=== PATIENT | male | born 1980 | race Caucasian/White ===

== ENCOUNTER 2017-11-15 04:10 | Emergency (ER) | payer MEDICAID ==
[~2017-11-15] VITALS: Ht 188 cm; Wt 105.0 kg
[2017-11-15 04:18] VITALS: BP 134/88
== END 2017-11-15 09:23 | disposition left against medical advice (07) ==
LOC: ER 04:10
DX: R11.10 Vomiting, unspecified (principal); Z53.21 Procedure and treatment not carried out due to patient leaving prior to being seen by health care provider

== ENCOUNTER 2017-11-20 02:32 | Emergency (ER) | payer OTHER ==
[~2017-11-20] VITALS: Ht 172.7 cm; Wt 81.0 kg
[2017-11-20 05:53] LABS: BASOPHILS % 0.4 % (0.0-2.0); CHLORIDE 103 mEq/L (98-107); EOSINOPHILS % 0.1 % (0.0-5.0); HEMATOCRIT. 43.4 % (42.0-52.0); HEMOGLOBIN. 14.8 g/dL (14.0-18.0); LYMPHOCYTES % 12.4 % (20.0-50.0); MEAN CORPUSCULAR HEMOGLOBIN 31.3 pg (28.0-32.0); MEAN CORPUSCULAR VOLUME 91.7 fL (80.0-94.0); MEAN PLATELET VOLUME 7.7 fl (7.4-10.4); MONOCYTES % 3.5 % (2.0-8.0); NEUTROPHILS % 83.6 % (40.0-76.0); PLATELET 206 x1000/uL (130-400); RED BLOOD CELL COUNT 4.73 mill/uL (4.7-6.1); RED CELL DISTRIBUTION WIDTH 14.4 % (11.6-14.6)
[2017-11-20 05:57] LABS: ETHANOL BLOOD < 10 mg/dL
[2017-11-20] MEDS ORDERED: POTASSIUM CHLORIDE 20MEQ TABLET SR PO ONE (06:45)
[2017-11-20] MEDS ORDERED: ONDANSETRON HCL 4MG/2ML VIAL IM ONE (07:45)
[2017-11-20 08:00] VITALS: BP 151/94
== END 2017-11-20 10:27 | disposition home or self-care (01) ==
LOC: ER 02:34
DX: F10.229 Alcohol dependence with intoxication, unspecified (principal); Y90.0 Blood alcohol level of less than 20 mg/100 ml; E87.6 Hypokalemia; R03.0 Elevated blood-pressure reading, without diagnosis of hypertension; R45.851 Suicidal ideations
CPT/HCPCS: 36415; 80053; 85025; 96372; 99284; G0482; J2405; Z7610

== ENCOUNTER 2017-11-20 12:26 | Emergency (ER) | payer OTHER ==
[~2017-11-20] VITALS: Ht 185.4 cm; Wt 95.0 kg
[2017-11-21 01:09] LABS: BASOPHILS % 0.3 % (0.0-2.0); EOSINOPHILS % 0.1 % (0.0-5.0); HEMATOCRIT. 44.8 % (42.0-52.0); HEMOGLOBIN. 15.3 g/dL (14.0-18.0); MEAN CORPUSCULAR HEMOGLOBIN 31.7 pg (28.0-32.0); MEAN CORPUSCULAR VOLUME 92.6 fL (80.0-94.0); MEAN PLATELET VOLUME 7.4 fl (7.4-10.4); MONOCYTES % 4.9 % (2.0-8.0); NEUTROPHILS % 71.7 % (40.0-76.0); PLATELET 228 x1000/uL (130-400); RED BLOOD CELL COUNT 4.84 mill/uL (4.7-6.1); RED CELL DISTRIBUTION WIDTH 14.9 % (11.6-14.6)
[2017-11-21 01:21] LABS: CHLORIDE 100 mEq/L (98-107)
[2017-11-21 01:31] LABS: ETHANOL BLOOD 142 mg/dL
[2017-11-21 03:48] LABS: CLARITY URINE CLEAR (CLEAR); COLOR URINE YELLOW (YELLOW); KETONES URINE 2+ (NEGATIVE); LEUKOCYTE ESTERASE URINE NEGATIVE (NEGATIVE); NITRITE URINE NEGATIVE (NEGATIVE); OCCULT BLOOD URINE NEGATIVE (NEGATIVE); PROTEIN URINE NEGATIVE (NEGATIVE); SPECIFIC GRAVITY URINE 1.014 (1.005-1.030); UROBILINOGEN URINE 0.2 E.U./dL (0.2-1.0)
[2017-11-21 04:07] LABS: *AMPHETAMINES SCREEN URINE NEGATIVE (NEGATIVE); *BARBITURATES SCREEN URINE NEGATIVE (NEGATIVE); *COCAINE SCREEN URINE NEGATIVE (NEGATIVE); METHADONE URINE SCREEN NEGATIVE (NEGATIVE); OPIATES URINE SCREEN NEGATIVE (NEGATIVE); PHENCYCLIDINE URINE SCREEN NEGATIVE (NEGATIVE)
[2017-11-21 05:10] LABS: *BENZODIAZEPINES SCREEN URINE PRESUMTIVE POSITIVE (NEGATIVE); CANNABINOID URINE SCREEN NEGATIVE (NEGATIVE)
[2017-11-21] MEDS ORDERED: SODIUM CHLORIDE 0.9% 1,000 ML IV ONE (05:45)
[2017-11-21 07:13] LABS: CHLORIDE 101 mEq/L (98-107)
[2017-11-21 07:18] LABS: ETHANOL BLOOD 67 mg/dL
[2017-11-21] MEDS ORDERED: ONDANSETRON HCL 4MG/2ML VIAL IV ONE (11:45)
[2017-11-21 14:21] LABS: CHLORIDE 102 mEq/L (98-107)
[2017-11-21 14:27] LABS: ETHANOL BLOOD < 10 mg/dL
[2017-11-21] MEDS ORDERED: LORAZEPAM 1MG TABLET PO ONE ×2 (23:30)
[2017-11-22 21:10] VITALS: BP 151/85
== END 2017-11-22 21:30 ==
LOC: ER 12:26
DX: T51.2X1A Toxic effect of 2-Propanol, accidental (unintentional), initial encounter (principal); F15.10 Other stimulant abuse, uncomplicated; Y92.89 Other specified places as the place of occurrence of the external cause
CPT/HCPCS: 36415; 80048; 80053; 80305; 81003; 82010; 83930; 85025; 93005; 96361; 96374; 99285; G0482; J2405; J7030

== ENCOUNTER 2019-04-03 15:08 | Emergency (ER) | payer MEDICAID, OTHER ==
[~2019-04-03] VITALS: Ht 175.3 cm; Wt 80.0 kg
[2019-04-03] MEDS ORDERED: DIPHENHYDRAMINE 50MG/ML VIAL IM ONE (15:45)
[2019-04-03] MEDS ORDERED: LORAZEPAM 2MG/ML CPJ IM ONE (15:45)
[2019-04-03] MEDS ORDERED: HALOPERIDOL LACTATE 5MG/ML VIAL IM ONE (15:45)
[2019-04-03 16:14] LABS: BASOPHILS % 0.7 % (0.0-2.0); EOSINOPHILS % 2.9 % (0.0-5.0); HEMATOCRIT. 44.2 % (42.0-52.0); HEMOGLOBIN. 15.1 g/dL (14.0-18.0); LYMPHOCYTES % 47.4 % (20.0-50.0); MEAN CORPUSCULAR HEMOGLOBIN 32.7 pg (28.0-32.0); MEAN CORPUSCULAR VOLUME 95.6 fL (80.0-94.0); MEAN PLATELET VOLUME 7.5 fl (7.4-10.4); MONOCYTES % 6.5 % (2.0-8.0); NEUTROPHILS % 42.5 % (40.0-76.0); PLATELET 212 x1000/uL (130-400); RED BLOOD CELL COUNT 4.63 mill/uL (4.7-6.1); RED CELL DISTRIBUTION WIDTH 13.5 % (11.6-14.6)
[2019-04-03 16:18] LABS: CHLORIDE 108 mEq/L (98-107)
[2019-04-03 16:37] LABS: ETHANOL BLOOD 414 mg/dL
[2019-04-03 20:38] LABS: CLARITY URINE CLEAR (CLEAR); COLOR URINE YELLOW (YELLOW); KETONES URINE NEGATIVE (NEGATIVE); LEUKOCYTE ESTERASE URINE NEGATIVE (NEGATIVE); NITRITE URINE NEGATIVE (NEGATIVE); OCCULT BLOOD URINE NEGATIVE (NEGATIVE); PH URINE 6.5 (4.5-8.0); PROTEIN URINE NEGATIVE (NEGATIVE); SPECIFIC GRAVITY URINE 1.013 (1.005-1.030)
[2019-04-03 21:37] LABS: *AMPHETAMINES SCREEN URINE NEGATIVE (NEGATIVE); *BARBITURATES SCREEN URINE NEGATIVE (NEGATIVE); *BENZODIAZEPINES SCREEN URINE PRESUMTIVE POSITIVE (NEGATIVE); *COCAINE SCREEN URINE NEGATIVE (NEGATIVE); METHADONE URINE SCREEN NEGATIVE (NEGATIVE)
[2019-04-03 21:38] LABS: CANNABINOID URINE SCREEN PRESUMTIVE POSITIVE (NEGATIVE); OPIATES URINE SCREEN NEGATIVE (NEGATIVE); PHENCYCLIDINE URINE SCREEN NEGATIVE (NEGATIVE)
[2019-04-04] MEDS ORDERED: LORAZEPAM 1MG TABLET PO ONE (02:45)
[2019-04-04] MEDS ORDERED: ONDANSETRON 4MG ODT PO ONE (09:15)
[2019-04-04] MEDS ORDERED: LORAZEPAM 2MG/ML CPJ IM ONE ×2 (09:15→17:45)
[2019-04-05 07:30] VITALS: BP 136/72
== END 2019-04-05 11:26 | disposition home or self-care (01) ==
LOC: ER 15:08
DX: R45.851 Suicidal ideations (principal); F32.9 Major depressive disorder, single episode, unspecified; F10.129 Alcohol abuse with intoxication, unspecified; Y90.8 Blood alcohol level of 240 mg/100 ml or more; F19.10 Other psychoactive substance abuse, uncomplicated; E87.6 Hypokalemia; R56.9 Unspecified convulsions
CPT/HCPCS: 36415; 80053; 80305; 80320; 81003; 85025; 96372; 99285; J1200; J1630; J2060; Q0162; Z7610; G0480

== ENCOUNTER 2019-06-27 04:33 | Emergency (ER) | payer MEDICAID ==
[~2019-06-27] VITALS: Ht 180.3 cm; Wt 113.0 kg
[2019-06-27 07:23] VITALS: BP 150/90
== END 2019-06-27 09:04 | disposition left against medical advice (07) ==
LOC: ER 05:02 → EDUNIT# 05:02 → ER 09:04
DX: Z53.21 Procedure and treatment not carried out due to patient leaving prior to being seen by health care provider (principal)

== ENCOUNTER 2019-06-28 20:24 | Emergency (ER) | payer MEDICAID ==
[~2019-06-28] VITALS: Ht 188 cm; Wt 107.0 kg
[2019-06-28] MEDS ORDERED: SODIUM CHLORIDE 0.9% 1,000 ML IV ONE (23:36)
[2019-06-28] MEDS ORDERED: ONDANSETRON HCL 4MG/2ML INJ IV STA (23:36)
[2019-06-28] MEDS ORDERED: CHLORDIAZEPOXIDE 25MG CAPSULE PO ONE (23:45)
[2019-06-29 00:30] LABS: BASOPHILS % 0.8 % (0.0-2.0); EOSINOPHILS % 0.1 % (0.0-5.0); HEMATOCRIT. 54.2 % (42.0-52.0); HEMOGLOBIN. 18.1 g/dL (14.0-18.0); LYMPHOCYTES % 19.8 % (20.0-50.0); MEAN CORPUSCULAR HEMOGLOBIN 31.4 pg (28.0-32.0); MEAN PLATELET VOLUME 7.3 fl (7.4-10.4); MONOCYTES % 4.3 % (2.0-8.0); PLATELET 285 x1000/uL (130-400); RED BLOOD CELL COUNT 5.76 mill/uL (4.7-6.1); RED CELL DISTRIBUTION WIDTH 14.2 % (11.6-14.6)
[2019-06-29 00:45] LABS: CHLORIDE 100 mEq/L (98-107)
[2019-06-29 00:48] LABS: ETHANOL BLOOD 337 mg/dL
[2019-06-29] MEDS ORDERED: KETOROLAC 30MG/ML VIAL IV NR (04:45)
[2019-06-29] MEDS ORDERED: FAMOTIDINE 20MG TABLET PO ONE (05:15)
[2019-06-29 06:59] VITALS: BP 120/72
== END 2019-06-29 07:01 | disposition home or self-care (01) ==
LOC: ER 20:24
DX: F10.129 Alcohol abuse with intoxication, unspecified (principal); Y90.8 Blood alcohol level of 240 mg/100 ml or more; Z88.8 Allergy status to other drugs, medicaments and biological substances
CPT/HCPCS: 36415; 71045; 80053; 80320; 83690; 84484; 85025; 93005; 96361; 96374; 96375; 99284; C1893; J1885; J2405; J7030; Z7610; G0480

== ENCOUNTER 2019-11-30 22:55 | Emergency (ER) | payer MEDICAID ==
[~2019-11-30] VITALS: Ht 177.8 cm; Wt 95.0 kg
[2019-11-30] MEDS ORDERED: SODIUM CHLORIDE 0.9% 1,000 ML IV ONE (23:31)
[2019-11-30] MEDS ORDERED: ONDANSETRON HCL 4MG/2ML INJ IV STA (23:31)
[2019-11-30] MEDS ORDERED: MORPHINE SULFATE 4 MG/ML CPJ (NOT FOR IM USE) IV STA (23:31)
[2019-11-30] MEDS ORDERED: FAMOTIDINE 20MG/2ML VIAL IV ONE (23:45)
[2019-11-30] MEDS ORDERED: VISCOUS LIDOCAINE 2% 15 ML UDC PO ONE (23:45)
[2019-11-30] MEDS ORDERED: MAGNESIUM/ALUMINUM HYDROXIDE/SIMETHICONE 30ML UDC PO ONE (23:45)
[2019-11-30] MEDS ORDERED: LORAZEPAM 2MG/ML CPJ IV ONE (23:45)
[2019-11-30 23:54] LABS: BASOPHILS % 0.3 % (0.0-2.0); EOSINOPHILS % 2.1 % (0.0-5.0); HEMATOCRIT. 37.2 % (42.0-52.0); HEMOGLOBIN. 12.8 g/dL (14.0-18.0); LYMPHOCYTES % 37.1 % (20.0-50.0); MEAN CORPUSCULAR HEMOGLOBIN 33.6 pg (28.0-32.0); MEAN CORPUSCULAR VOLUME 97.3 fL (80.0-94.0); MONOCYTES % 8.4 % (2.0-8.0); NEUTROPHILS % 52.1 % (40.0-76.0); PLATELET 325 x1000/uL (130-400); RED BLOOD CELL COUNT 3.82 mill/uL (4.7-6.1); RED CELL DISTRIBUTION WIDTH 15.1 % (11.6-14.6)
[2019-11-30 23:56] LABS: CHLORIDE 107 mEq/L (98-107)
[2019-12-01] LABS: ETHANOL BLOOD 140 mg/dL
[2019-12-01 01:52] LABS: CLARITY URINE CLEAR (CLEAR); COLOR URINE YELLOW (YELLOW); KETONES URINE NEGATIVE (NEGATIVE); LEUKOCYTE ESTERASE URINE NEGATIVE (NEGATIVE); NITRITE URINE NEGATIVE (NEGATIVE); OCCULT BLOOD URINE NEGATIVE (NEGATIVE); PROTEIN URINE NEGATIVE (NEGATIVE); SPECIFIC GRAVITY URINE 1.018 (1.005-1.030); UROBILINOGEN URINE 0.2 E.U./dL (0.2-1.0)
[2019-12-01] MEDS ORDERED: FOLIC ACID 1 MG, THIAMINE HCL 100 MG, MVI, ADULT NO.1 10 ML in DEXTROSE 5% WATER 1,000 ML IV ONE ×4 (02:00)
[2019-12-01] MEDS ORDERED: LORAZEPAM 2MG/ML CPJ IV ONE (02:00)
[2019-12-01 02:02] LABS: *AMPHETAMINES SCREEN URINE NEGATIVE (NEGATIVE); *BARBITURATES SCREEN URINE NEGATIVE (NEGATIVE); *BENZODIAZEPINES SCREEN URINE PRESUMTIVE POSITIVE (NEGATIVE); *COCAINE SCREEN URINE NEGATIVE (NEGATIVE); METHADONE URINE SCREEN NEGATIVE (NEGATIVE); OPIATES URINE SCREEN PRESUMTIVE POSITIVE (NEGATIVE)
[2019-12-01 02:03] LABS: CANNABINOID URINE SCREEN NEGATIVE (NEGATIVE); PHENCYCLIDINE URINE SCREEN NEGATIVE (NEGATIVE)
[2019-12-01 04:22] VITALS: BP 120/68
[2019-12-01] MEDS ORDERED: ONDANSETRON HCL 4MG/2ML INJ IV ONE (05:15)
== END 2019-12-01 05:55 | disposition home or self-care (01) ==
LOC: ER 22:55
DX: S93.491A Sprain of other ligament of right ankle, initial encounter (principal); K29.20 Alcoholic gastritis without bleeding; F10.10 Alcohol abuse, uncomplicated; R00.0 Tachycardia, unspecified; Y90.6 Blood alcohol level of 120-199 mg/100 ml; W18.39XA Other fall on same level, initial encounter; Y93.89 Activity, other specified; Y92.89 Other specified places as the place of occurrence of the external cause; Y99.8 Other external cause status; Z90.49 Acquired absence of other specified parts of digestive tract; Z88.8 Allergy status to other drugs, medicaments and biological substances
CPT/HCPCS: 36415; 73610; 80053; 80305; 80320; 81003; 83690; 84484; 85025; 93005; 96365; 96375; 96376; 99285; J2060; J2270; J2405; J3411; J3490; J7030; J7070; G0480

== ENCOUNTER 2019-12-15 01:21 | Emergency (ER) | payer MEDICAID ==
[~2019-12-15] VITALS: Ht 182.9 cm; Wt 95.0 kg
[2019-12-15] MEDS ORDERED: CHLORDIAZEPOXIDE 25MG CAPSULE PO ONE (02:00)
[2019-12-15] MEDS ORDERED: HYDROCODONE/ACETAMINOPHEN 5/325MG TABLET PO ONE (03:00)
[2019-12-15 04:30] LABS: EOSINOPHILS % 1.2 % (0.0-5.0); HEMATOCRIT. 41.5 % (42.0-52.0); HEMOGLOBIN. 14.3 g/dL (14.0-18.0); LYMPHOCYTES % 41.6 % (20.0-50.0); MEAN CORPUSCULAR HEMOGLOBIN 33.3 pg (28.0-32.0); MEAN CORPUSCULAR VOLUME 96.8 fL (80.0-94.0); MEAN PLATELET VOLUME 6.8 fl (7.4-10.4); MONOCYTES % 8.2 % (2.0-8.0); PLATELET 176 x1000/uL (130-400); RED BLOOD CELL COUNT 4.29 mill/uL (4.7-6.1); RED CELL DISTRIBUTION WIDTH 15.3 % (11.6-14.6)
[2019-12-15] MEDS ORDERED: IBUPROFEN 400MG TABLET PO ONE (04:45)
[2019-12-15 04:46] LABS: CHLORIDE 104 mEq/L (98-107)
[2019-12-15 05:15] LABS: *AMPHETAMINES SCREEN URINE NEGATIVE (NEGATIVE); *BARBITURATES SCREEN URINE PRESUMTIVE POSITIVE (NEGATIVE)
[2019-12-15 05:16] LABS: *BENZODIAZEPINES SCREEN URINE PRESUMTIVE POSITIVE (NEGATIVE); *COCAINE SCREEN URINE NEGATIVE (NEGATIVE); CANNABINOID URINE SCREEN NEGATIVE (NEGATIVE); METHADONE URINE SCREEN NEGATIVE (NEGATIVE); OPIATES URINE SCREEN NEGATIVE (NEGATIVE); PHENCYCLIDINE URINE SCREEN NEGATIVE (NEGATIVE)
[2019-12-15 05:39] LABS: ETHANOL BLOOD 314 mg/dL
[2019-12-15] MEDS ORDERED: LORAZEPAM 2MG/ML CPJ IM ONE (07:15)
[2019-12-15] MEDS ORDERED: HALOPERIDOL LACTATE 5MG/ML VIAL IM ONE (07:30)
[2019-12-15 09:48] VITALS: BP 142/85
== END 2019-12-15 10:18 | disposition home or self-care (01) ==
LOC: ER 01:49
DX: F10.239 Alcohol dependence with withdrawal, unspecified (principal); R45.851 Suicidal ideations; R51 Headache; R45.1 Restlessness and agitation; Z87.19 Personal history of other diseases of the digestive system; Z88.8 Allergy status to other drugs, medicaments and biological substances; Z90.49 Acquired absence of other specified parts of digestive tract
CPT/HCPCS: 36415; 80053; 80305; 80320; 85025; 96372; 99285; J1630; J2060; G0480

== ENCOUNTER 2019-12-16 02:49 | Emergency (ER) | payer MEDICAID ==
[~2019-12-16] VITALS: Ht 177.8 cm; Wt 90.0 kg
[2019-12-16 03:41] LABS: BASOPHILS % 1.1 % (0.0-2.0); EOSINOPHILS % 2.4 % (0.0-5.0); HEMATOCRIT. 37.1 % (42.0-52.0); HEMOGLOBIN. 13.1 g/dL (14.0-18.0); LYMPHOCYTES % 41.6 % (20.0-50.0); MEAN CORPUSCULAR HEMOGLOBIN 33.6 pg (28.0-32.0); MEAN CORPUSCULAR VOLUME 95.4 fL (80.0-94.0); MEAN PLATELET VOLUME 6.9 fl (7.4-10.4); MONOCYTES % 10.3 % (2.0-8.0); NEUTROPHILS % 44.6 % (40.0-76.0); PLATELET 151 x1000/uL (130-400); RED BLOOD CELL COUNT 3.89 mill/uL (4.7-6.1); RED CELL DISTRIBUTION WIDTH 15.5 % (11.6-14.6)
[2019-12-16 04:01] LABS: CHLORIDE 102 mEq/L (98-107)
[2019-12-16 04:06] LABS: ETHANOL BLOOD 167 mg/dL
[2019-12-16 04:36] LABS: CLARITY URINE CLEAR (CLEAR); COLOR URINE YELLOW (YELLOW); KETONES URINE NEGATIVE (NEGATIVE); LEUKOCYTE ESTERASE URINE NEGATIVE (NEGATIVE); NITRITE URINE NEGATIVE (NEGATIVE); OCCULT BLOOD URINE NEGATIVE (NEGATIVE); PROTEIN URINE NEGATIVE (NEGATIVE); SPECIFIC GRAVITY URINE 1.006 (1.005-1.030)
[2019-12-16 04:40] LABS: *AMPHETAMINES SCREEN URINE NEGATIVE (NEGATIVE); *BARBITURATES SCREEN URINE PRESUMTIVE POSITIVE (NEGATIVE); *BENZODIAZEPINES SCREEN URINE PRESUMTIVE POSITIVE (NEGATIVE); *COCAINE SCREEN URINE NEGATIVE (NEGATIVE)
[2019-12-16 04:41] LABS: CANNABINOID URINE SCREEN NEGATIVE (NEGATIVE); METHADONE URINE SCREEN NEGATIVE (NEGATIVE); OPIATES URINE SCREEN NEGATIVE (NEGATIVE); PHENCYCLIDINE URINE SCREEN NEGATIVE (NEGATIVE)
[2019-12-16] MEDS ORDERED: POTASSIUM CHLORIDE 20MEQ TABLET SR PO ONE (06:30)
[2019-12-16] MEDS ORDERED: ONDANSETRON 4MG ODT PO ONE (06:45)
[2019-12-16] MEDS ORDERED: CHLORDIAZEPOXIDE 25MG CAPSULE PO ONE (09:30)
[2019-12-16] MEDS ORDERED: LORAZEPAM 1MG TABLET PO ONE (19:00)
[2019-12-17] MEDS ORDERED: LORAZEPAM 1MG TABLET PO NR (05:00)
[2019-12-17] MEDS ORDERED: ACETAMINOPHEN 500MG TABLET PO NR (05:00)
[2019-12-17] MEDS ORDERED: CHLORDIAZEPOXIDE 25MG CAPSULE PO NR (05:00)
[2019-12-17 06:36] VITALS: BP 143/91
[2019-12-17] MEDS ORDERED: MULTIVITAMINS,THER W-MINERALS TABLET PO SCH (09:00)
[2019-12-17] MEDS ORDERED: THIAMINE HCL 100MG TABLET PO SCH (09:00)
== END 2019-12-17 08:30 | disposition home or self-care (01) ==
LOC: ER 02:49
DX: F41.9 Anxiety disorder, unspecified (principal); F41.0 Panic disorder [episodic paroxysmal anxiety]; F20.9 Schizophrenia, unspecified; F10.20 Alcohol dependence, uncomplicated; Y90.0 Blood alcohol level of less than 20 mg/100 ml; Z88.8 Allergy status to other drugs, medicaments and biological substances
CPT/HCPCS: 36415; 80053; 80305; 80307; 80320; 80329; 81003; 82962; 85025; 93005; 99285; Q0162; G0480

== ENCOUNTER 2019-12-17 08:24 | Emergency (ER) | payer MEDICAID ==
[~2019-12-17] VITALS: Ht 188 cm; Wt 104.5 kg
[2019-12-17 11:01] VITALS: BP 141/94
== END 2019-12-17 11:12 | disposition home or self-care (01) ==
LOC: ER 08:36
DX: R45.851 Suicidal ideations (principal)
CPT/HCPCS: 99281

== ENCOUNTER 2020-03-21 19:37 | Inpatient (IN) | payer MEDICAID ==
[~2020-03-21] VITALS: Ht 188 cm; Wt 108.9 kg
[2020-03-21] MEDS ORDERED: SODIUM CHLORIDE 0.9% 1,000 ML IV ONE (20:39)
[2020-03-21] MEDS ORDERED: LORAZEPAM 2MG/ML CPJ IV ONE (20:45)
[2020-03-21] MEDS ORDERED: CEFTRIAXONE 1 G PREMIX 50 ML IV ONE (20:45)
[2020-03-21] MEDS ORDERED: FOLIC ACID 1 MG, THIAMINE HCL 100 MG, MVI, ADULT NO.1 10 ML in DEXTROSE 5% WATER 1,000 ML IV ONE ×4 (20:45)
[2020-03-21 22:55] LABS: BASOPHILS % 1.4 % (0.0-2.0); EOSINOPHILS % 0.7 % (0.0-5.0); HEMATOCRIT. 43.4 % (42.0-52.0); HEMOGLOBIN. 15.1 g/dL (14.0-18.0); LYMPHOCYTES % 31.8 % (20.0-50.0); MEAN CORPUSCULAR HEMOGLOBIN 33.2 pg (28.0-32.0); MEAN CORPUSCULAR VOLUME 95.6 fL (80.0-94.0); MEAN PLATELET VOLUME 6.6 fl (7.4-10.4); MONOCYTES % 5.1 % (2.0-8.0); PLATELET 211 x1000/uL (130-400); RED BLOOD CELL COUNT 4.53 mill/uL (4.7-6.1)
[2020-03-21 23:02] LABS: CHLORIDE 101 mEq/L (98-107)
[2020-03-21 23:16] LABS: ETHANOL BLOOD 338 mg/dL
[2020-03-21] MEDS ORDERED: DIPHENHYDRAMINE 50MG/ML VIAL IV PRN (23:45)
[2020-03-21] MEDS ORDERED: NA PHOS,M-B/NA PHOS,DI-BA ENEMA 118ML PR PRN (23:45)
[2020-03-21] MEDS ORDERED: ACETAMINOPHEN 325MG TABLET PO PRN (23:45)
[2020-03-21] MEDS ORDERED: MVI, ADULT NO.1 10 ML, FOLIC ACID 1 MG, THIAMINE HCL 100 MG in SODIUM CHLORIDE 0.9% 1,0... IV SCH ×4 (23:45)
[2020-03-21] MEDS ORDERED: ACETAMINOPHEN 650MG SUPP PR PRN (23:45)
[2020-03-21] MEDS ORDERED: ACETAMINOPHEN 650MG/20.3ML UDC GT PRN ×2 (23:45)
[2020-03-22] MEDS: LORAZEPAM 2MG/ML CPJ IV PRN ×3 (05:08→18:23)
[2020-03-22] MEDS: ACETAMINOPHEN 325MG TABLET PO PRN (05:09)
[2020-03-22 05:29] LABS: BASOPHILS % 1.2 % (0.0-2.0); EOSINOPHILS % 1.4 % (0.0-5.0); HEMATOCRIT. 38.7 % (42.0-52.0); HEMOGLOBIN. 13.1 g/dL (14.0-18.0); LYMPHOCYTES % 32.8 % (20.0-50.0); MEAN CORPUSCULAR HEMOGLOBIN 32.3 pg (28.0-32.0); MEAN CORPUSCULAR VOLUME 95.4 fL (80.0-94.0); MEAN PLATELET VOLUME 6.6 fl (7.4-10.4); MONOCYTES % 7.1 % (2.0-8.0); NEUTROPHILS % 57.5 % (40.0-76.0); PLATELET 170 x1000/uL (130-400); RED BLOOD CELL COUNT 4.06 mill/uL (4.7-6.1); RED CELL DISTRIBUTION WIDTH 16.9 % (11.6-14.6)
[2020-03-22 05:35] LABS: CHLORIDE 102 mEq/L (98-107)
[2020-03-22 05:49] LABS: LDL CHOLESTEROL 149 mg/dL (5-100)
[2020-03-22 05:52] LABS: HDL CHOLESTEROL 65 mg/dL (40-59)
[2020-03-22] MEDS ORDERED: CHLORDIAZEPOXIDE 25MG CAPSULE PO SCH (06:00)
[2020-03-22] MEDS: FAMOTIDINE 20MG/2ML VIAL IV SCH (09:03)
[2020-03-22] MEDS: THIAMINE HCL 100MG TABLET PO SCH (09:03)
[2020-03-22] MEDS: LEVETIRACETAM 500MG TABLET PO SCH ×2 (09:03→21:26)
[2020-03-22] MEDS ORDERED: POTASSIUM CHLORIDE 20MEQ TABLET SR PO NR (10:15)
[2020-03-22] MEDS: DEXT 5%/0.45% NACL 1000ML 1,000 ML IV SCH (10:49)
[2020-03-22] MEDS: CHLORDIAZEPOXIDE 25MG CAPSULE PO SCH ×2 (15:15→22:27)
[2020-03-22] MEDS: AMLODIPINE 10MG TABLET PO SCH (21:27)
[2020-03-23] MEDS: LORAZEPAM 2MG/ML CPJ IV PRN ×4 (01:27→19:54)
[2020-03-23] MEDS: CHLORDIAZEPOXIDE 25MG CAPSULE PO SCH ×3 (07:38→17:30)
[2020-03-23 08:18] LABS: BASOPHILS % 0.8 % (0.0-2.0); EOSINOPHILS % 4.1 % (0.0-5.0); HEMATOCRIT. 39.2 % (42.0-52.0); HEMOGLOBIN. 13.8 g/dL (14.0-18.0); LYMPHOCYTES % 14.9 % (20.0-50.0); MEAN CORPUSCULAR HEMOGLOBIN 33.7 pg (28.0-32.0); MEAN CORPUSCULAR VOLUME 95.7 fL (80.0-94.0); MEAN PLATELET VOLUME 7.2 fl (7.4-10.4); MONOCYTES % 5.5 % (2.0-8.0); NEUTROPHILS % 74.7 % (40.0-76.0); PLATELET 133 x1000/uL (130-400); RED BLOOD CELL COUNT 4.09 mill/uL (4.7-6.1); RED CELL DISTRIBUTION WIDTH 16.6 % (11.6-14.6)
[2020-03-23 08:23] LABS: CHLORIDE 103 mEq/L (98-107)
[2020-03-23] MEDS: LEVETIRACETAM 500MG TABLET PO SCH ×2 (09:00→22:16)
[2020-03-23] MEDS: FAMOTIDINE 20MG/2ML VIAL IV SCH (09:00)
[2020-03-23] MEDS: AMLODIPINE 10MG TABLET PO SCH (09:00)
[2020-03-23] MEDS: THIAMINE HCL 100MG TABLET PO SCH (09:00)
[2020-03-23] MEDS: BENAZEPRIL 5MG TABLET PO SCH (14:15)
[2020-03-23] MEDS ORDERED: BUPR-43 (18:56)
[2020-03-23] MEDS ORDERED: PANT40TA4 (18:56)
[2020-03-23] MEDS ORDERED: BUPR-315 (18:56)
[2020-03-23] MEDS ORDERED: FOLI-43 (18:56)
[2020-03-23] MEDS ORDERED: DES150 (18:56)
[2020-03-23 21:50] VITALS: BP 149/92
[2020-03-23] MEDS ORDERED: LURA60TA PO (22:03)
[2020-03-23] MEDS ORDERED: LORA2TAB95 PO (22:03)
[2020-03-24] VITALS: BP 149/92
[2020-03-24] MEDS: LORAZEPAM 2MG/ML CPJ IV PRN (00:16)
[2020-03-24] MEDS: ACETAMINOPHEN 325MG TABLET PO PRN (02:05)
[2020-03-24] MEDS: CHLORDIAZEPOXIDE 25MG CAPSULE PO SCH ×3 (05:20→21:37)
[2020-03-24] MEDS: LORAZEPAM 1MG TABLET PO PRN ×3 (06:49→20:03)
[2020-03-24 08:00] VITALS: BP 126/82
[2020-03-24] MEDS: THIAMINE HCL 100MG TABLET PO SCH (09:28)
[2020-03-24] MEDS: FAMOTIDINE 20MG/2ML VIAL IV SCH (09:28)
[2020-03-24] MEDS: AMLODIPINE 10MG TABLET PO SCH (09:28)
[2020-03-24] MEDS: BENAZEPRIL 5MG TABLET PO SCH (09:28)
[2020-03-24] MEDS: DEXT 5%/0.45% NACL 1000ML 1,000 ML IV SCH (09:30)
[2020-03-24] MEDS: LEVETIRACETAM 500MG TABLET PO SCH ×2 (09:43→20:02)
[2020-03-24 12:00] VITALS: BP 125/71
[2020-03-24] MEDS ORDERED: THIA50TA11 MT (12:33)
[2020-03-24 16:00] VITALS: BP 107/70
[2020-03-24] MEDS ORDERED: BUPROPION HCL 150MG TABLET XL 24HR PO SCH ×2 (21:00)
[2020-03-24] MEDS ORDERED: TRAZODONE HCL 50MG TABLET PO SCH (21:00)
[2020-03-25 04:00] VITALS: BP 110/54
[2020-03-25] MEDS: CHLORDIAZEPOXIDE 25MG CAPSULE PO SCH ×2 (05:30→14:25)
[2020-03-25 08:00] VITALS: BP 103/65
[2020-03-25] MEDS: LEVETIRACETAM 500MG TABLET PO SCH (09:00)
[2020-03-25] MEDS: AMLODIPINE 10MG TABLET PO SCH (09:00)
[2020-03-25] MEDS: FAMOTIDINE 20MG/2ML VIAL IV SCH (09:00)
[2020-03-25] MEDS: BENAZEPRIL 5MG TABLET PO SCH (09:00)
[2020-03-25] MEDS: THIAMINE HCL 100MG TABLET PO SCH (09:01)
[2020-03-25] MEDS: LORAZEPAM 1MG TABLET PO PRN (11:23)
[2020-03-25 12:00] VITALS: BP 126/77
[2020-03-25 15:00] VITALS: BP 126/77
== END 2020-03-25 16:16 | disposition home or self-care (01) | DRG 775 ==
LOC: ER 19:37 → MICUSO 23:14 → EDBEDREQTM 03-22 23:20 → EDBEDREQSVC 03-22 23:20 → EDBEDREQTM 03-23 07:10 → EDBEDREQDT 03-23 07:10 → EDBEDREQSVC 03-23 07:10 → ENRESERV 03-23 20:58 → 6EST 03-23 22:09
PROVIDERS: ADMIT Family Medicine; ATTEND Family Medicine
DX: F10.121 Alcohol abuse with intoxication delirium (principal); J96.01 Acute respiratory failure with hypoxia; E86.0 Dehydration; Y90.8 Blood alcohol level of 240 mg/100 ml or more; F25.9 Schizoaffective disorder, unspecified; E87.2 Acidosis; E78.5 Hyperlipidemia, unspecified; E87.6 Hypokalemia; Z88.8 Allergy status to other drugs, medicaments and biological substances; Z90.49 Acquired absence of other specified parts of digestive tract
CPT/HCPCS: 36415; 71045; 80048; 80053; 80061; 80320; 83605; 83880; 84484; 85025; 93005; 96365; 99285; J0696; J2060; J3411; J3490; J7030; J7070; G0480

== ENCOUNTER 2020-04-01 12:14 | Emergency (ER) | payer MEDICAID ==
[~2020-04-01] VITALS: Ht 188 cm; Wt 100.0 kg
[~2020-04-01 12:14] MED LIST: BUPR-315; BUPR-43; DES150; FOLI-43; LORA2TAB95 PO; LURA60TA PO; PANT40TA4; THIA50TA11 MT
[2020-04-01] MEDS ORDERED: SODIUM CHLORIDE 0.9% 1,000 ML IV ONE (12:41)
[2020-04-01] MEDS ORDERED: LORAZEPAM 2MG/ML CPJ IV ONE ×2 (12:45→15:00)
[2020-04-01] MEDS ORDERED: FOLIC ACID 1 MG, THIAMINE HCL 100 MG, MVI, ADULT NO.1 10 ML in DEXTROSE 5% WATER 1,000 ML IV ONE ×4 (12:45)
[2020-04-01 13:24] LABS: BASOPHILS % 1.2 % (0.0-2.0); EOSINOPHILS % 0.1 % (0.0-5.0); HEMATOCRIT. 44.8 % (42.0-52.0); HEMOGLOBIN. 15.4 g/dL (14.0-18.0); LYMPHOCYTES % 13.2 % (20.0-50.0); MEAN CORPUSCULAR HEMOGLOBIN 32.8 pg (28.0-32.0); MEAN CORPUSCULAR VOLUME 95.7 fL (80.0-94.0); MEAN PLATELET VOLUME 6.7 fl (7.4-10.4); MONOCYTES % 7.2 % (2.0-8.0); NEUTROPHILS % 78.3 % (40.0-76.0); PLATELET 251 x1000/uL (130-400); RED BLOOD CELL COUNT 4.69 mill/uL (4.7-6.1); RED CELL DISTRIBUTION WIDTH 15.8 % (11.6-14.6)
[2020-04-01 13:32] LABS: CHLORIDE 98 mEq/L (98-107)
[2020-04-01 13:35] LABS: ETHANOL BLOOD 178 mg/dL
[2020-04-01] MEDS ORDERED: CHLORDIAZEPOXIDE 25MG CAPSULE PO ONE (15:00)
[2020-04-01 17:59] VITALS: BP 134/77
== END 2020-04-01 18:00 | disposition home or self-care (01) ==
LOC: ER 12:14
DX: F10.239 Alcohol dependence with withdrawal, unspecified (principal); Y90.6 Blood alcohol level of 120-199 mg/100 ml; F32.9 Major depressive disorder, single episode, unspecified; F20.9 Schizophrenia, unspecified; F41.9 Anxiety disorder, unspecified; Z88.8 Allergy status to other drugs, medicaments and biological substances
CPT/HCPCS: 36415; 80053; 80320; 85025; 93005; 96365; 96375; 96376; 99285; J2060; J3411; J3490; J7030; J7070; G0480